=== PATIENT | female | born 1965 | race Caucasian/White ===

== ENCOUNTER 2024-07-03 23:34 | Emergency (ER) | payer MEDICAID ==
[~2024-07-03] VITALS: Ht 144.8 cm; Wt 55.7 kg
[2024-07-03 23:40] VITALS: TEMP 98.2; O2SAT 99
[2024-07-04] MEDS: KETOROLAC 30MG/ML VIAL IM STA (05:30)
[2024-07-04] MEDS: TETANUS, DIPHTHERIA, PERTUSSIS VAC/PF 0.5ML (>10YR OLD) IM ONE (05:30)
[2024-07-04 07:18] VITALS: BP 124/80; PULSE 74; RESP 16; O2SAT 99
== END 2024-07-04 07:47 | disposition home or self-care (01) ==
LOC: ER 23:34
DX: S00.83XA Contusion of other part of head, initial encounter (principal); R22.0 Localized swelling, mass and lump, head; R07.81 Pleurodynia; E11.9 Type 2 diabetes mellitus without complications; E78.00 Pure hypercholesterolemia, unspecified; I10 Essential (primary) hypertension; Y08.89XA Assault by other specified means, initial encounter; Y93.89 Activity, other specified; Y92.89 Other specified places as the place of occurrence of the external cause; Y99.8 Other external cause status
CPT/HCPCS: 71100; 99285; 70450; 70486; 90715; 90471; 96372; J1885; Z7610

== ENCOUNTER 2025-06-01 15:13 | Emergency (ER) | payer MEDICAID ==
[~2025-06-01] VITALS: Ht 142.2 cm; Wt 81.0 kg
[2025-06-01 15:15] VITALS: O2SAT 100
[2025-06-01] MEDS: MORPHINE SULFATE 4 MG/ML INJ (FOR IV/IM USE) IV ONE (15:49)
[2025-06-01] MEDS: ONDANSETRON HCL 4MG/2ML INJ IV ONE (15:50)
[2025-06-01] MEDS: TETRACAINE 0.5% OPHTH DROPS 4ML LEFTEYE ONE (18:10)
[2025-06-01] MEDS ORDERED: IBUP-2029 MT (20:26)
[2025-06-01] MEDS ORDERED: AMOX1TAB16 MT (20:26)
[2025-06-01 22:25] VITALS: BP 102/63; PULSE 91; RESP 14; TEMP 36.7; O2SAT 94
== END 2025-06-01 22:57 | disposition home or self-care (01) ==
LOC: ER 15:13
DX: S02.122A Fracture of orbital roof, left side, initial encounter for closed fracture (principal); M25.512 Pain in left shoulder; M25.522 Pain in left elbow; M79.602 Pain in left arm; E11.9 Type 2 diabetes mellitus without complications; E78.00 Pure hypercholesterolemia, unspecified; I10 Essential (primary) hypertension; Y09 Assault by unspecified means; Y93.89 Activity, other specified; Y92.89 Other specified places as the place of occurrence of the external cause; Y99.8 Other external cause status
CPT/HCPCS: 73030; 73080; 70450; 70486; 72125; 96374; 96375; 99285; J2405; J2270; Z7610 ×2; A4606